=== PATIENT | male | born 1995 | race African-American/Black ===

== ENCOUNTER 2022-05-24 12:26 | Emergency (ER) | payer SELFPAY ==
[~2022-05-24] VITALS: Ht 172.7 cm; Wt 88.0 kg
[2022-05-24 12:42] VITALS: BP 126/74
[2022-05-24] MEDS ORDERED: TETANUS, DIPHTHERIA, PERTUSSIS VAC/PF 0.5ML (>10YR OLD) IM ONE (14:15)
[2022-05-24] MEDS ORDERED: AMOX1TAB16 MT (14:18)
== END 2022-05-24 16:19 | disposition home or self-care (01) ==
LOC: ER 12:26
DX: S60.512A Abrasion of left hand, initial encounter (principal); S60.511A Abrasion of right hand, initial encounter; Z91.013 Allergy to seafood; Y04.1XXA Assault by human bite, initial encounter; Y92.89 Other specified places as the place of occurrence of the external cause; Y99.8 Other external cause status
CPT/HCPCS: 90471; 90715; 99283